=== PATIENT | female | born 1935 | race Two or more races ===

== ENCOUNTER 2017-07-19 08:40 | Emergency (ER) | payer OTHER ==
[~2017-07-19] VITALS: Ht 165.1 cm; Wt 61.2 kg
[~2017-07-19 08:40] MED LIST: AML5T PO; ASPI81TA27 PO; ATOR20TA50 PO; FOLI1TAB6 PO; METO25TA62 PO
[2017-07-19 09:22] LABS: Hematocrit 37.7 % (36.0-46.0); Hemoglobin 12.5 g/dL (12.2-16.2); Mean Corpuscular Hemoglobin 31.9 pg (28.0-32.0); Mean Corpuscular Hgb Conc. 33.3 g/dL (32.0-36.0); Mean Platelet Volume 7.5 fL (6.9-10.8); Platelet Count (auto) 199 10^3/uL (140-450); Red Cell Distribution Width 18.5 % (11.8-14.3)
[2017-07-19 09:31] LABS: Metamyelocytes % 0; Myelocytes % 0; Promyelocytes % 0; Reactive Lymphocytes 0
[2017-07-19] MEDS ORDERED: SODIUM CHLORIDE 0.9% 1,000 ML IV ONE (09:33)
[2017-07-19 10:01] LABS: Albumin 3.8 g/dL (3.4-5.0); BUN/Creatinine Ratio 16.8; Bilirubin, Total 0.6 mg/dL (0.2-1.0); Total Protein 7.8 g/dL (6.4-8.2)
[2017-07-19 11:04] LABS: Urine Bilirubin Negative (Negative); Urine Blood Negative /uL (Negative); Urine Color Yellow (Yellow); Urine Glucose Normal (Normal); Urine Ketone TRACE (Negative); Urine Mucus FEW (None Seen); Urine Nitrite Negative (Negative); Urine RBC <1 /hpf (0 - 4); Urine Squamous Epithelial Cell FEW /hpf (<5); Urine Urobilinogen Normal (Negative); Urine WBC Clumps PRESENT /hpf (None Seen); Urine pH 5.5 (5.0-8.0)
[2017-07-19 11:37] LABS: Large Platelets FEW; Platelet Estimate Adequate
[2017-07-19 13:10] VITALS: BP 136/90
== END 2017-07-19 13:35 | disposition home or self-care (01) ==
LOC: EDBD 08:40 → ER 08:40
DX: M16.12 Unilateral primary osteoarthritis, left hip (principal); N39.0 Urinary tract infection, site not specified; R42 Dizziness and giddiness
CPT/HCPCS: 36415; 70450; 70486; 71010; 73700; 80053; 80307; 80320; 81001; 83735; 84484; 85007; 85027; 93005; 96360; 96361; 99285; J7030

== ENCOUNTER 2017-08-29 19:31 | Emergency (ER) | payer OTHER ==
[~2017-08-29] VITALS: Ht 165.1 cm; Wt 61.2 kg
[2017-08-29 20:36] LABS: Basophils # (auto) 0 uL; Eosinophils # (auto) 0.2 uL; Eosinophils % (auto) 3.8 % (0.0-7.0); Hematocrit 31.9 % (36.0-46.0); Hemoglobin 10.7 g/dL (12.2-16.2); Lymphocytes # (auto) 1.5 uL; Lymphocytes % (auto) 30.9 % (10.0-50.0); Mean Corpuscular Hemoglobin 32.7 pg (28.0-32.0); Mean Corpuscular Hgb Conc. 33.7 g/dL (32.0-36.0); Mean Corpuscular Volume 97.2 fL (80.0-100.0); Mean Platelet Volume 8.1 fL (6.9-10.8); Monocytes # (auto) 0.6 uL; Monocytes % (auto) 11.7 % (0.0-12.0); Neutrophils # (auto) 2.6 uL; Neutrophils % (auto) 52.6 % (37.0-80.0); Nucleated Red Blood Cells % 0.1 %; Platelet Count (auto) 124 10^3/uL (140-450)
[2017-08-29 21:00] LABS: Albumin 3.1 g/dL (3.4-5.0); Anion Gap 8 (5-15); BUN/Creatinine Ratio 12.7; Blood Urea Nitrogen 15 mg/dL (7-18); Calcium 8.2 mg/dL (8.5-10.1); Carbon Dioxide 23 mmol/L (21-32); Chloride 106 mmol/L (98-107); GFR African American 57 mL/min; GFR Non-African American 47 mL/min; Glucose 94 mg/dL (74-106); Potassium 4.1 mmol/L (3.5-5.1); Sodium 137 mmol/L (136-145)
[2017-08-29 21:09] LABS: Alkaline Phosphatase 63 U/L (45-117); Aspartate Aminotransferase 16 U/L (15-37); Bilirubin, Total 0.3 mg/dL (0.2-1.0); Total Protein 6.4 g/dL (6.4-8.2)
[2017-08-30 00:07] VITALS: BP 96/48
[2017-08-30] MEDS ORDERED: THIAMINE HCL 100 MG/ML 2ML VIAL IV ONE (01:00)
== END 2017-08-30 01:20 | disposition home or self-care (01) ==
LOC: EDBD 19:31 → ER 19:35
DX: S70.01XA Contusion of right hip, initial encounter (principal); G92 Toxic encephalopathy; F10.120 Alcohol abuse with intoxication, uncomplicated; I10 Essential (primary) hypertension; Z90.49 Acquired absence of other specified parts of digestive tract; Z90.89 Acquired absence of other organs; W19.XXXA Unspecified fall, initial encounter; Y93.89 Activity, other specified; Y99.8 Other external cause status; Y92.89 Other specified places as the place of occurrence of the external cause
CPT/HCPCS: 36415; 71010; 73502; 80053; 80320; 84484; 85025; 93005; 96374; 99285; J3411

== ENCOUNTER 2017-09-23 10:01 | Emergency (ER) | payer OTHER ==
[~2017-09-23] VITALS: Ht 162.6 cm; Wt 79.8 kg
[2017-09-23 11:04] LABS: Basophils # (auto) 0.1 uL; Basophils % (auto) 1.1 % (0.0-2.0); Eosinophils # (auto) 0.3 uL; Eosinophils % (auto) 6.3 % (0.0-7.0); Hematocrit 35.7 % (36.0-46.0); Hemoglobin 11.8 g/dL (12.2-16.2); Lymphocytes # (auto) 1.5 uL; Lymphocytes % (auto) 29.2 % (10.0-50.0); Mean Corpuscular Hemoglobin 32.3 pg (28.0-32.0); Mean Corpuscular Volume 97.9 fL (80.0-100.0); Mean Platelet Volume 7.6 fL (6.9-10.8); Monocytes # (auto) 0.4 uL; Monocytes % (auto) 7.2 % (0.0-12.0); Neutrophils # (auto) 2.9 uL; Neutrophils % (auto) 56.2 % (37.0-80.0); Platelet Count (auto) 163 10^3/uL (140-450); White Blood Cell 5.2 10^3/uL (4.4-10.8)
[2017-09-23 11:37] LABS: Albumin 3.4 g/dL (3.4-5.0); BUN/Creatinine Ratio 26.3; Bilirubin, Total 0.2 mg/dL (0.2-1.0); Calcium 8.3 mg/dL (8.5-10.1); Potassium 4.4 mmol/L (3.5-5.1); Total Protein 7.1 g/dL (6.4-8.2)
[2017-09-23] MEDS ORDERED: SODIUM CHLORIDE 0.9% 1,000 ML IV ONE (12:41)
[2017-09-23 13:00] LABS: Urine Bilirubin Negative (Negative); Urine Blood Negative /uL (Negative); Urine Color Yellow (Yellow); Urine Glucose Normal (Normal); Urine Ketone Negative (Negative); Urine Mucus FEW (None Seen); Urine Nitrite Negative (Negative); Urine RBC <1 /hpf (0 - 4); Urine Squamous Epithelial Cell FEW /hpf (<5); Urine Urobilinogen Normal (Negative)
[2017-09-23 13:14] VITALS: BP 87/39
== END 2017-09-23 14:28 | disposition home or self-care (01) ==
LOC: ER 10:01 → EDUNIT# 10:01 → EDBD 10:01 → ER 14:28
DX: S52.501A Unspecified fracture of the lower end of right radius, initial encounter for closed fracture (principal); F10.10 Alcohol abuse, uncomplicated; I10 Essential (primary) hypertension; Z90.49 Acquired absence of other specified parts of digestive tract; W18.39XA Other fall on same level, initial encounter; Y93.89 Activity, other specified; Y99.8 Other external cause status; Y92.009 Unspecified place in unspecified non-institutional (private) residence as the place of occurrence of the external cause
CPT/HCPCS: 29125; 36415; 73110; 73200; 73502; 80053; 80320; 81001; 83735; 84484; 85025; 93005; 96360; 99285; J7030

== ENCOUNTER 2018-03-03 21:12 | Emergency (ER) | payer OTHER ==
[~2018-03-03] VITALS: Ht 167.6 cm; Wt 81.6 kg
[2018-03-03 22:06] LABS: Basophils # (auto) 0.1 uL; Basophils % (auto) 1.4 % (0.0-2.0); Eosinophils # (auto) 0.3 uL; Eosinophils % (auto) 6.2 % (0.0-7.0); Hematocrit 32.9 % (36.0-46.0); Lymphocytes # (auto) 1.8 uL; Lymphocytes % (auto) 36.7 % (10.0-50.0); Mean Corpuscular Hemoglobin 32.5 pg (28.0-32.0); Mean Corpuscular Hgb Conc. 33.4 g/dL (32.0-36.0); Mean Corpuscular Volume 97.3 fL (80.0-100.0); Monocytes # (auto) 0.6 uL; Monocytes % (auto) 12.2 % (0.0-12.0); Neutrophils # (auto) 2.1 uL; Neutrophils % (auto) 43.5 % (37.0-80.0); Nucleated Red Blood Cells % 0.1 %; Platelet Count (auto) 141 10^3/uL (140-450); Red Blood Cells 3.38 10^6/uL (4.0-5.20); Red Cell Distribution Width 16.6 % (11.8-14.3); White Blood Cell 4.8 10^3/uL (4.4-10.8)
[2018-03-03 22:24] LABS: INR 1.02 (0.9-1.15); Partial Thromboplastin Time 27.9 sec (23.78-33.04); Prothrombin Time 10.9 sec (9.27-12.13)
[2018-03-03 22:26] LABS: Carbon Dioxide 22 mmol/L (21-32); Chloride 105 mmol/L (98-107); Potassium 4.1 mmol/L (3.5-5.1); Sodium 138 mmol/L (136-145)
[2018-03-03 22:27] LABS: Acetaminophen < 2.0 ug/mL (10-30); Alanine Aminotransferase 18 U/L (13-56); Albumin 3.3 g/dL (3.4-5.0); Anion Gap 11 (5-15); Aspartate Aminotransferase 15 U/L (15-37); BUN/Creatinine Ratio 20.3; Blood Urea Nitrogen 29 mg/dL (7-18); Calcium 8.5 mg/dL (8.5-10.1); GFR African American 45 mL/min; GFR Non-African American 37 mL/min; Glucose 86 mg/dL (74-106); Salicylate < 1.7 mg/dL (2.8-20.0)
[2018-03-03 22:32] LABS: Alkaline Phosphatase 64 U/L (45-117); Bilirubin, Total 0.4 mg/dL (0.2-1.0); Total Protein 6.9 g/dL (6.4-8.2)
[2018-03-03 23:23] LABS: Urine Bacteria MANY /hpf (None Seen); Urine Blood Negative /uL (Negative); Urine Specific Gravity 1.016 (1.001-1.035); Urine WBC 30 /hpf (0 - 5)
[2018-03-04 01:00] VITALS: BP 134/57
== END 2018-03-04 01:23 | disposition home or self-care (01) ==
LOC: ER 21:12 → EDBD 21:12 → EDUNIT# 21:12 → ER 03-04 01:18
DX: F10.129 Alcohol abuse with intoxication, unspecified (principal); G92 Toxic encephalopathy; N39.0 Urinary tract infection, site not specified; R31.9 Hematuria, unspecified; I10 Essential (primary) hypertension; Z79.82 Long term (current) use of aspirin; Z90.49 Acquired absence of other specified parts of digestive tract
CPT/HCPCS: 36415; 80053; 80320; 80329; 81001; 84484; 85025; 85610; 85730

== ENCOUNTER 2018-05-09 00:29 | Observation (INO) | payer OTHER ==
[~2018-05-09] VITALS: Ht 165.1 cm; Wt 61.2 kg
[2018-05-09 01:07] LABS: Basophils # (auto) 0.1 uL; Basophils % (auto) 1.2 % (0.0-2.0); Eosinophils # (auto) 0.3 uL; Eosinophils % (auto) 7.2 % (0.0-7.0); Hematocrit 32.7 % (36.0-46.0); Hemoglobin 11.2 g/dL (12.2-16.2); Lymphocytes # (auto) 1.6 uL; Lymphocytes % (auto) 34.1 % (10.0-50.0); Mean Corpuscular Hemoglobin 33.9 pg (28.0-32.0); Mean Corpuscular Hgb Conc. 34.4 g/dL (32.0-36.0); Mean Corpuscular Volume 98.5 fL (80.0-100.0); Monocytes # (auto) 0.5 uL; Neutrophils # (auto) 2.2 uL; Neutrophils % (auto) 47.5 % (37.0-80.0); Platelet Count (auto) 155 10^3/uL (140-450); Red Blood Cells 3.32 10^6/uL (4.0-5.20); Red Cell Distribution Width 17.6 % (11.8-14.3); White Blood Cell 4.7 10^3/uL (4.4-10.8)
[2018-05-09 01:25] LABS: Albumin 3.1 g/dL (3.4-5.0); Calcium 8.2 mg/dL (8.5-10.1); Potassium 3.9 mmol/L (3.5-5.1)
[2018-05-09 01:27] LABS: BUN/Creatinine Ratio 15.2
[2018-05-09 01:28] LABS: Acetaminophen < 2.0 ug/mL (10-30); Salicylate < 1.7 mg/dL (2.8-20.0)
[2018-05-09 01:29] LABS: Bilirubin, Total 0.3 mg/dL (0.2-1.0); Total Protein 6.4 g/dL (6.4-8.2)
[2018-05-09] MEDS ORDERED: THIAMINE INJ 100 MG, MULTIPLE VITAMIN 10 ML, FOLIC ACID 1 MG, MAGNESIUM SULF SDV 50% 8 ... IV STA ×5 (02:49)
[2018-05-09 06:11] VITALS: BP 113/67
[2018-05-09] MEDS ORDERED: THIAMINE INJ 100 MG, MULTIPLE VITAMIN 10 ML, FOLIC ACID 1 MG, MAGNESIUM SULF SDV 50% 8 ... IV SCH ×5 (12:00)
== END 2018-05-09 07:02 | disposition home or self-care (01) | DRG 92 ==
LOC: ER 00:29 → EDBD 00:29 → OVERFLOW 00:30 → ER 07:02
PROVIDERS: ADMIT Emergency Medicine; ATTEND Emergency Medicine
DX: G92 Toxic encephalopathy (principal); F33.0 Major depressive disorder, recurrent, mild; I10 Essential (primary) hypertension; F10.129 Alcohol abuse with intoxication, unspecified; Z90.49 Acquired absence of other specified parts of digestive tract; Z79.82 Long term (current) use of aspirin
CPT/HCPCS: 36415; 80053; 80320; 80329; 85025; 99285; G0378; J7030

== ENCOUNTER 2018-10-12 12:17 | Emergency (ER) | payer OTHER ==
[~2018-10-12] VITALS: Ht 165.1 cm; Wt 65.8 kg
[2018-10-12] MEDS ORDERED: SODIUM CHLORIDE 0.9% 1,000 ML IV ONE ×4 (12:19→18:03)
[2018-10-12] MEDS ORDERED: THIAMINE 100mg/ml INJ (200mg/2ml VIAL) IV ONE (12:30)
[2018-10-12 13:03] LABS: Basophils # (auto) 0 uL; Basophils % (auto) 0.4 % (0.0-2.0); Eosinophils # (auto) 0.5 uL; Hematocrit 36.8 % (36.0-46.0); Hemoglobin 12.3 g/dL (12.2-16.2); Lymphocytes # (auto) 1.2 uL; Lymphocytes % (auto) 27.5 % (10.0-50.0); Mean Corpuscular Hgb Conc. 33.4 g/dL (32.0-36.0); Mean Corpuscular Volume 92.8 fL (80.0-100.0); Monocytes # (auto) 0.4 uL; Monocytes % (auto) 8.4 % (0.0-12.0); Neutrophils # (auto) 2.4 uL; Neutrophils % (auto) 52.7 % (37.0-80.0); Nucleated Red Blood Cells % 0.1 %; Platelet Count (auto) 200 10^3/uL (140-450); Red Blood Cells 3.96 10^6/uL (4.0-5.20); Red Cell Distribution Width 17.1 % (11.8-14.3); White Blood Cell 4.5 10^3/uL (4.4-10.8)
[2018-10-12 13:17] LABS: Acetaminophen < 2.0 ug/mL (10-30); Albumin 3.4 g/dL (3.4-5.0); Calcium 8.7 mg/dL (8.5-10.1); Potassium 4.5 mmol/L (3.5-5.1); Salicylate < 1.7 mg/dL (2.8-20.0)
[2018-10-12 13:19] LABS: BUN/Creatinine Ratio 13.3; Bilirubin, Total 0.3 mg/dL (0.2-1.0)
[2018-10-12] MEDS ORDERED: LORazepam 0.5 MG TAB PO ONE (14:30)
[2018-10-12] MEDS ORDERED: HALOPERIDOL LACTATE 5 MG/ML INJ VIAL IM ONE (14:30)
[2018-10-12] MEDS ORDERED: LORazepam 2MG/ML-1ML VIAL IM ONE (14:30)
[2018-10-12] MEDS ORDERED: THIAMINE HCL 100 MG TAB PO ONE (16:30)
[2018-10-12 16:31] LABS: Amphetamine Screen, Urine NEGATIVE (NEGATIVE); Barbiturate Scree,Urine NEGATIVE (NEGATIVE); Benzodiazephine Screen, Urine NEGATIVE (NEGATIVE); Cannabinoid Screen, Urine NEGATIVE (NEGATIVE); Cocaine Screen, Urine NEGATIVE (NEGATIVE); Opiate Scree,Urine NEGATIVE (NEGATIVE); Phencyclidine Screen, Urine NEGATIVE (NEGATIVE)
[2018-10-12 16:49] LABS: Urine Bacteria NONE SEEN /hpf (None Seen); Urine Blood Negative /uL (Negative); Urine Specific Gravity 1.009 (1.001-1.035); Urine WBC 1 /hpf (0 - 5)
[2018-10-13 20:00] VITALS: BP 128/86
== END 2018-10-13 20:35 | disposition short-term general hospital (02) ==
LOC: EDBD 12:17 → ER 12:32
DX: R45.851 Suicidal ideations (principal); F10.920 Alcohol use, unspecified with intoxication, uncomplicated; I10 Essential (primary) hypertension; Y90.0 Blood alcohol level of less than 20 mg/100 ml; Z90.49 Acquired absence of other specified parts of digestive tract; Z90.89 Acquired absence of other organs
CPT/HCPCS: 36415; 51702; 71045; 80053; 80307; 80320; 80329; 81001; 85025; 96372; 99285; J1630; J2060; J7030

== ENCOUNTER 2019-01-04 02:54 | Emergency (ER) | payer OTHER ==
[~2019-01-04] VITALS: Ht 165.1 cm; Wt 63.5 kg
[2019-01-04 08:13] LABS: Basophils # (auto) 0.1 uL; Eosinophils # (auto) 0.1 uL; Eosinophils % (auto) 1.5 % (0.0-7.0); Hematocrit 35.5 % (36.0-46.0); Hemoglobin 11.7 g/dL (12.2-16.2); Lymphocytes # (auto) 0.8 uL; Lymphocytes % (auto) 14.3 % (10.0-50.0); Mean Corpuscular Hemoglobin 30.8 pg (28.0-32.0); Mean Corpuscular Volume 93.5 fL (80.0-100.0); Monocytes # (auto) 0.5 uL; Monocytes % (auto) 8.3 % (0.0-12.0); Neutrophils # (auto) 4.4 uL; Neutrophils % (auto) 74.9 % (37.0-80.0); Nucleated Red Blood Cells % 0.1 %; Platelet Count (auto) 221 10^3/uL (140-450); Red Cell Distribution Width 17.5 % (11.8-14.3); White Blood Cell 5.9 10^3/uL (4.4-10.8)
[2019-01-04 08:31] LABS: Albumin 3.3 g/dL (3.4-5.0)
[2019-01-04 08:43] LABS: Bilirubin, Total 0.3 mg/dL (0.2-1.0); Total Protein 6.7 g/dL (6.4-8.2)
[2019-01-04 09:20] VITALS: BP 115/95
== END 2019-01-04 09:31 | disposition home or self-care (01) ==
LOC: EDBD 02:54 → ER 03:00
DX: S76.011A Strain of muscle, fascia and tendon of right hip, initial encounter (principal); I10 Essential (primary) hypertension; Z79.82 Long term (current) use of aspirin; Z79.899 Other long term (current) drug therapy; W18.39XA Other fall on same level, initial encounter; Y93.89 Activity, other specified; Y99.8 Other external cause status; Y92.098 Other place in other non-institutional residence as the place of occurrence of the external cause
CPT/HCPCS: 36415; 70450; 71250; 72192; 80053; 83735; 84484; 85025; 93005

== ENCOUNTER 2019-07-17 12:43 | Emergency (ER) | payer OTHER ==
[~2019-07-17] VITALS: Ht 160 cm; Wt 63.5 kg
[~2019-07-17 12:43] MED LIST changes: +ASPI-404 PO; -ASPI81TA27 PO
[2019-07-17 14:08] LABS: Basophils # (auto) 0.1 uL; Basophils % (auto) 1.6 % (0.0-2.0); Eosinophils # (auto) 0.2 uL; Eosinophils % (auto) 4.7 % (0.0-7.0); Hemoglobin 11.7 g/dL (12.2-16.2); Lymphocytes # (auto) 1.1 uL; Lymphocytes % (auto) 24.8 % (10.0-50.0); Mean Corpuscular Hemoglobin 31.7 pg (28.0-32.0); Mean Corpuscular Hgb Conc. 33.4 g/dL (32.0-36.0); Mean Corpuscular Volume 94.9 fL (80.0-100.0); Monocytes # (auto) 0.3 uL; Monocytes % (auto) 5.9 % (0.0-12.0); Neutrophils # (auto) 2.9 uL; Nucleated Red Blood Cells % 0.1 %; Platelet Count (auto) 251 10^3/uL (140-450); Red Blood Cells 3.69 10^6/uL (4.0-5.20); Red Cell Distribution Width 16.3 % (11.8-14.3); White Blood Cell 4.6 10^3/uL (4.4-10.8)
[2019-07-17 14:38] LABS: INR 0.96 (0.9-1.15); Partial Thromboplastin Time 25.4 sec (23.64-32.05)
[2019-07-17 14:54] LABS: Alanine Aminotransferase 17 U/L (13-56); Albumin 2.3 g/dL (3.4-5.0); Anion Gap 10 (5-15); Aspartate Aminotransferase 25 U/L (15-37); Blood Urea Nitrogen 31 mg/dL (7-18); Carbon Dioxide 23 mmol/L (21-32); Chloride 110 mmol/L (98-107); Magnesium 2.2 mg/dL (1.6-2.6); Potassium 4.5 mmol/L (3.5-5.1); Sodium 143 mmol/L (136-145)
[2019-07-17 14:59] LABS: Alkaline Phosphatase 63 U/L (45-117); BUN/Creatinine Ratio 23.3; Bilirubin, Total 0.2 mg/dL (0.2-1.0); Calcium 8.4 mg/dL (8.5-10.1); GFR African American 49 mL/min; GFR Non-African American 41 mL/min; Glucose 79 mg/dL (74-106); Total Protein 6.7 g/dL (6.4-8.2)
[2019-07-17] MEDS ORDERED: FOLIC ACID 1 MG, MULTIPLE VITAMIN 10 ML, MAGNESIUM SULF SDV 50% 8 MEQ, THIAMINE INJ 100... INJ STA ×5 (16:11)
[2019-07-17] MEDS ORDERED: THIAMINE HCL 100 MG TAB PO ONE (16:30)
[2019-07-17 23:00] VITALS: BP 158/71
== END 2019-07-17 22:56 | disposition home or self-care (01) ==
LOC: EDBD 12:43 → ER 12:43
DX: S62.614A Displaced fracture of proximal phalanx of right ring finger, initial encounter for closed fracture (principal); S62.616A Displaced fracture of proximal phalanx of right little finger, initial encounter for closed fracture; D64.9 Anemia, unspecified; F10.20 Alcohol dependence, uncomplicated; I48.91 Unspecified atrial fibrillation; J44.9 Chronic obstructive pulmonary disease, unspecified; I10 Essential (primary) hypertension; Z79.82 Long term (current) use of aspirin; Z79.899 Other long term (current) drug therapy; W18.39XA Other fall on same level, initial encounter; Y93.89 Activity, other specified; Y99.8 Other external cause status; Y92.89 Other specified places as the place of occurrence of the external cause
CPT/HCPCS: 29125; 36415; 70450; 71045; 73130; 80053; 80320; 83735; 84484; 85025; 85610; 85730; 93005; 94761; 99284; J3411; J3475; J7030

== ENCOUNTER → 2020-09-04 | Emergency (ER) | payer OTHER ==
[~2020-09-04] VITALS: Ht 182.9 cm; Wt 74.8 kg
[~2020-09-04] MED LIST changes: -ASPI-404 PO; +ASPI-543 PO; -METO25TA62 PO; +METO25TA93 PO
[2020-09-04 10:14] LABS: Basophils # (auto) 0 10 ^3/uL (0-0.2); Basophils % (auto) 0.6 % (0.0-2.0); Eosinophils # (auto) 0.2 10 ^3/uL (0-0.8); Eosinophils % (auto) 2.8 % (0.0-7.0); Hematocrit 34.6 % (36.0-46.0); Hemoglobin 11.5 g/dL (12.2-16.2); Lymphocytes % (auto) 15.3 % (10.0-50.0); Mean Corpuscular Hemoglobin 29.2 pg (28.0-32.0); Mean Corpuscular Hgb Conc. 33.3 g/dL (32.0-36.0); Mean Corpuscular Volume 87.8 fL (80.0-100.0); Monocytes # (auto) 0.6 10 ^3/uL (0-1.3); Monocytes % (auto) 8.4 % (0.0-12.0); Neutrophils # (auto) 4.8 10 ^3/uL (1.6-8.6); Neutrophils % (auto) 72.9 % (37.0-80.0); Platelet Count (auto) 250 10^3/uL (140-450); Red Blood Cells 3.94 10^6/uL (4.0-5.20); Red Cell Distribution Width 16.6 % (11.8-14.3); White Blood Cell 6.6 10^3/uL (4.4-10.8)
[2020-09-04 10:23] LABS: Alanine Aminotransferase 12 U/L (13-56); Albumin 2.9 g/dL (3.4-5.0); Anion Gap 10 (5-15); Blood Urea Nitrogen 18 mg/dL (7-18); Calcium 8.9 mg/dL (8.5-10.1); Carbon Dioxide 23 mmol/L (21-32); Chloride 102 mmol/L (98-107); Glucose 86 mg/dL (74-106); Potassium 3.8 mmol/L (3.5-5.1); Sodium 135 mmol/L (136-145)
[2020-09-04 10:26] LABS: INR 1.02 (0.9-1.15)
[2020-09-04 10:27] LABS: Partial Thromboplastin Time < 20.0 sec (23.0-31.2)
[2020-09-04 10:28] LABS: Alkaline Phosphatase 80 U/L (45-117); Aspartate Aminotransferase 15 U/L (15-37); BUN/Creatinine Ratio 12.9; Bilirubin, Total 0.7 mg/dL (0.2-1.0); GFR African American 47 mL/min; GFR Non-African American 38 mL/min; Total Protein 6.8 g/dL (6.4-8.2)
[2020-09-04 15:46] VITALS: BP 160/84
== END | disposition home or self-care (01) ==
LOC: EDUNIT# 01:42 → EDBD 02:05 → ER 02:05
DX: S76.012A Strain of muscle, fascia and tendon of left hip, initial encounter (principal); M16.11 Unilateral primary osteoarthritis, right hip; I48.91 Unspecified atrial fibrillation; J44.9 Chronic obstructive pulmonary disease, unspecified; I10 Essential (primary) hypertension; F10.20 Alcohol dependence, uncomplicated; Y90.9 Presence of alcohol in blood, level not specified; Z79.899 Other long term (current) drug therapy; W18.39XA Other fall on same level, initial encounter; Y93.89 Activity, other specified; Y92.009 Unspecified place in unspecified non-institutional (private) residence as the place of occurrence of the external cause; Y99.8 Other external cause status
CPT/HCPCS: 36415; 70450; 71045; 72192; 80053; 84484; 85025; 85610; 85730

== ENCOUNTER 2020-11-01 15:55 | Emergency (ER) | payer OTHER ==
[~2020-11-01] VITALS: Ht 165.1 cm; Wt 61.2 kg
[2020-11-01] MEDS ORDERED: THIAMINE 100mg/ml INJ (200mg/2ml VIAL) IV ONE (16:15)
[2020-11-01] MEDS ORDERED: SODIUM CHLORIDE 0.9% 1,000 ML IV ONE ×2 (16:15)
[2020-11-01 17:10] LABS: Basophils # (auto) 0 10 ^3/uL (0-0.2); Basophils % (auto) 0.4 % (0.0-2.0); Eosinophils # (auto) 0.1 10 ^3/uL (0-0.8); Eosinophils % (auto) 0.9 % (0.0-7.0); Hematocrit 34.2 % (36.0-46.0); Hemoglobin 11.4 g/dL (12.2-16.2); Lymphocytes # (auto) 0.6 10 ^3/uL (0.4-5.4); Lymphocytes % (auto) 6.2 % (10.0-50.0); Mean Corpuscular Hemoglobin 29.9 pg (28.0-32.0); Mean Corpuscular Hgb Conc. 33.4 g/dL (32.0-36.0); Mean Corpuscular Volume 89.6 fL (80.0-100.0); Monocytes # (auto) 0.4 10 ^3/uL (0-1.3); Monocytes % (auto) 3.6 % (0.0-12.0); Neutrophils # (auto) 9.1 10 ^3/uL (1.6-8.6); Neutrophils % (auto) 88.9 % (37.0-80.0); Platelet Count (auto) 297 10^3/uL (140-450); Red Blood Cells 3.82 10^6/uL (4.0-5.20); Red Cell Distribution Width 16.9 % (11.8-14.3); White Blood Cell 10.2 10^3/uL (4.4-10.8)
[2020-11-01 17:24] LABS: Urine Bacteria NONE SEEN /hpf (None Seen); Urine Blood Negative /uL (Negative); Urine Specific Gravity 1.011 (1.001-1.035); Urine WBC <1 /hpf (0 - 5)
[2020-11-01 17:28] LABS: Albumin 3.2 g/dL (3.4-5.0); Anion Gap 5 (5-15); Blood Urea Nitrogen 19 mg/dL (7-18); Calcium 8.7 mg/dL (8.5-10.1); Carbon Dioxide 26 mmol/L (21-32); Chloride 112 mmol/L (98-107); Glucose 85 mg/dL (74-106); Potassium 3.8 mmol/L (3.5-5.1); Sodium 143 mmol/L (136-145)
[2020-11-01 17:29] LABS: INR 1.03 (0.9-1.15); Partial Thromboplastin Time 24.6 sec (23.0-31.2)
[2020-11-01 17:34] LABS: Alanine Aminotransferase 17 U/L (13-56); Alkaline Phosphatase 68 U/L (45-117); Aspartate Aminotransferase 19 U/L (15-37); Bilirubin, Total 0.2 mg/dL (0.2-1.0); GFR African American 52 mL/min; GFR Non-African American 43 mL/min
[2020-11-01] MEDS ORDERED: ACETAMINOPHEN 500 MG TAB PO ONE (20:15)
[2020-11-01] MEDS ORDERED: KETOROLAC TROMETH 30 MG/ML 1ML VIAL IV ONE (20:15)
[2020-11-02 00:18] VITALS: BP 147/73
== END 2020-11-02 01:52 | disposition home or self-care (01) ==
LOC: ER 15:55 → EDBD 15:55 → ER 11-02 01:52
DX: S52.201A Unspecified fracture of shaft of right ulna, initial encounter for closed fracture (principal); F10.129 Alcohol abuse with intoxication, unspecified; J44.9 Chronic obstructive pulmonary disease, unspecified; I10 Essential (primary) hypertension; W18.39XA Other fall on same level, initial encounter; Y93.89 Activity, other specified; Y92.89 Other specified places as the place of occurrence of the external cause; Y99.8 Other external cause status; Y90.8 Blood alcohol level of 240 mg/100 ml or more
CPT/HCPCS: 36415; 70450; 71045; 71101; 73080; 73090; 80053; 80320; 81001; 84484; 85025; 85610; 85730; 93005; 96361; 96374; 96375; 99285; J1885; J3411; J7030

== ENCOUNTER 2021-08-10 16:50 | Inpatient (IN) | payer OTHER ==
[2021-08-10] VITALS (11 sets, daily range): BP systolic 158–179; BP diastolic 85–91
[2021-08-10] MEDS ORDERED: DOPamine 1600MCG/ML D5W 250 ML IV ONE (17:12)
[2021-08-10] MEDS ORDERED: ASPirin 81 mg TAB PO ONE (17:15)
[2021-08-10] MEDS ORDERED: SODIUM CHLORIDE 0.9% 1,000 ML IV ONE ×2 (17:15→21:00)
[2021-08-10] MEDS ORDERED: ONDANSETRON HCL 4 MG/2 ML VIAL ONE (17:35)
[2021-08-10] MEDS ORDERED: MORPHINE SULFATE INJECTION 2 MG/ML SYRG ONE (17:36)
[2021-08-10] MEDS: DOPamine 1600MCG/ML D5W 250 ML IV SCH (17:44)
[2021-08-10] MEDS ORDERED: ONDANSETRON HCL 4 MG/2 ML VIAL IV ONE (17:45)
[2021-08-10] MEDS ORDERED: MORPHINE SULFATE INJECTION 2 MG/ML SYRG IV ONE (17:45)
[2021-08-10 17:50] LABS: Basophils # (auto) 0.1 10 ^3/uL (0-0.2); Basophils % (auto) 0.7 % (0.0-2.0); Eosinophils # (auto) 0.1 10 ^3/uL (0-0.8); Hemoglobin 12.1 g/dL (12.2-16.2); Lymphocytes # (auto) 0.8 10 ^3/uL (0.4-5.4); Lymphocytes % (auto) 8.1 % (10.0-50.0); Mean Corpuscular Hemoglobin 30.9 pg (28.0-32.0); Mean Corpuscular Hgb Conc. 32.7 g/dL (32.0-36.0); Mean Corpuscular Volume 94.3 fL (80.0-100.0); Monocytes # (auto) 0.8 10 ^3/uL (0-1.3); Monocytes % (auto) 7.9 % (0.0-12.0); Neutrophils # (auto) 8.5 10 ^3/uL (1.6-8.6); Neutrophils % (auto) 82.3 % (37.0-80.0); Nucleated Red Blood Cells % 0.3 %; Red Blood Cells 3.92 10^6/uL (4.0-5.20); Red Cell Distribution Width 17.3 % (11.8-14.3); White Blood Cell 10.3 10^3/uL (4.4-10.8)
[2021-08-10 18:04] LABS: Albumin 2.8 g/dL (3.4-5.0); Calcium 9.1 mg/dL (8.5-10.1); Magnesium 3.2 mg/dL (1.6-2.6); Potassium 4.4 mmol/L (3.5-5.1)
[2021-08-10 18:12] LABS: Bilirubin, Total 0.9 mg/dL (0.2-1.0); Total Protein 6.7 g/dL (6.4-8.2)
[2021-08-10 18:21] LABS: INR 1.77 (0.9-1.15)
[2021-08-10] MEDS ORDERED: LIDOCAINE 2%HCL (LOCAL ANESTH.) INJ 20ML MDV ONE (19:10)
[2021-08-10] MEDS ORDERED: IODIXANOL 320MG/ML 100ML BTL IV ONE (19:10)
[2021-08-10] MEDS ORDERED: ANGIOMAX 250 MG VIAL IV ONE (19:24)
[2021-08-10] MEDS ORDERED: MIDAZOLAM HCL 2MG/2ML 2ml VIAL (1mg/ml) ONE (19:25)
[2021-08-10] MEDS ORDERED: fentaNYL CITRATE 100 MCG/2 ML VL ONE (19:25)
[2021-08-10] MEDS ORDERED: SODIUM CHL 0.9% 0 ML ONE (19:25)
[2021-08-10] MEDS ORDERED: HEPARIN SODIUM (PORCINE) 5000 UNITS/ML 1ML VIAL ONE (19:26)
[2021-08-10] MEDS ORDERED: VERAPAMIL 2.5MG/ML INJ 2ML VIAL IV ONE (19:26)
[2021-08-10] MEDS ORDERED: phytonadione 10 MG in SODIUM CHL 0.9% 50 ML IV ONE (21:00)
[2021-08-10] MEDS ORDERED: NITROGLYCERIN 0.4 MG SL TAB SL PRN (21:30)
[2021-08-10] MEDS ORDERED: HYDROcodone-ACET 5/325MG TAB PO PRN (21:30)
[2021-08-10] MEDS ORDERED: hydrALAZINE HCL 20 MG/ML VL IV PRN (21:30)
[2021-08-10] MEDS ORDERED: ACETAMINOPHEN 325 MG TAB PO PRN (21:30)
[2021-08-10] MEDS ORDERED: MORPHINE SULFATE INJECTION 2 MG/ML SYRG IV PRN (21:30)
[2021-08-10] MEDS ORDERED: ONDANSETRON HCL 4 MG/2 ML VIAL IV PRN (21:30)
[2021-08-10] MEDS ORDERED: DOCUSATE SOD 100 MG CAP PO PRN (21:30)
[2021-08-10] MEDS: ALBUTEROL SULF HFA 90MCG INH 200DOSE IN SCH (22:00)
[2021-08-10] MEDS: ASCORBIC ACID 500 MG TAB PO SCH (22:00)
[2021-08-10] MEDS: SODIUM CHLOR 0.9% PF (SALINE LOCK) 10ML VIAL/SYR IV SCH (22:00)
[2021-08-10] MEDS ORDERED: phytonadione 1 ML ONE (23:06)
[2021-08-11] VITALS (50 sets, daily range): BP systolic 103–187; BP diastolic 59–92
[2021-08-11 03:56] LABS: Basophils # (auto) 0 10 ^3/uL (0-0.2); Basophils % (auto) 0.5 % (0.0-2.0); Eosinophils # (auto) 0.3 10 ^3/uL (0-0.8); Eosinophils % (auto) 2.9 % (0.0-7.0); Hemoglobin 11.6 g/dL (12.2-16.2); Lymphocytes # (auto) 0.9 10 ^3/uL (0.4-5.4); Lymphocytes % (auto) 9.8 % (10.0-50.0); Mean Corpuscular Hemoglobin 30.6 pg (28.0-32.0); Mean Corpuscular Hgb Conc. 32.1 g/dL (32.0-36.0); Mean Corpuscular Volume 95.2 fL (80.0-100.0); Monocytes # (auto) 0.8 10 ^3/uL (0-1.3); Monocytes % (auto) 8.5 % (0.0-12.0); Neutrophils % (auto) 78.3 % (37.0-80.0); Nucleated Red Blood Cells % 0.3 %; Red Blood Cells 3.78 10^6/uL (4.0-5.20); Red Cell Distribution Width 17.6 % (11.8-14.3); White Blood Cell 8.9 10^3/uL (4.4-10.8)
[2021-08-11 05:02] LABS: Potassium 4.3 mmol/L (3.5-5.1)
[2021-08-11 05:04] LABS: BUN/Creatinine Ratio 26.9; Bilirubin, Total 0.6 mg/dL (0.2-1.0); Calcium 9.4 mg/dL (8.5-10.1)
[2021-08-11 05:05] LABS: Albumin 2.7 g/dL (3.4-5.0); Total Protein 6.5 g/dL (6.4-8.2)
[2021-08-11] MEDS: SODIUM CHLOR 0.9% PF (SALINE LOCK) 10ML VIAL/SYR IV SCH ×3 (05:20→22:00)
[2021-08-11] MEDS: ALBUTEROL SULF HFA 90MCG INH 200DOSE IN SCH (06:00)
[2021-08-11] MEDS: FAMOTIDINE (10MG/ML) 2ML VL IV SCH (09:33)
[2021-08-11] MEDS: ZINC SULFATE 220mg CAP or TAB PO SCH (09:34)
[2021-08-11] MEDS: FUROSEMIDE 20 MG/2 ML VIAL IV SCH (09:34)
[2021-08-11] MEDS: ASCORBIC ACID 500 MG TAB PO SCH ×2 (09:34→22:00)
[2021-08-11] MEDS: ASPirin 81 mg TAB PO SCH (09:34)
[2021-08-11] MEDS: MULTIPLE VITAMIN TAB PO SCH (09:34)
[2021-08-11] MEDS: DOPamine 1600MCG/ML D5W 250 ML IV SCH (11:16)
[2021-08-11 13:48] LABS: Basophils # (auto) 0 10 ^3/uL (0-0.2); Basophils % (auto) 0.5 % (0.0-2.0); Eosinophils # (auto) 0.2 10 ^3/uL (0-0.8); Hematocrit 37.2 % (36.0-46.0); Hemoglobin 12.3 g/dL (12.2-16.2); Lymphocytes # (auto) 0.4 10 ^3/uL (0.4-5.4); Lymphocytes % (auto) 4.3 % (10.0-50.0); Mean Corpuscular Hemoglobin 30.7 pg (28.0-32.0); Mean Corpuscular Hgb Conc. 33.1 g/dL (32.0-36.0); Mean Corpuscular Volume 92.8 fL (80.0-100.0); Monocytes # (auto) 0.6 10 ^3/uL (0-1.3); Monocytes % (auto) 6.2 % (0.0-12.0); Neutrophils # (auto) 8.1 10 ^3/uL (1.6-8.6); Nucleated Red Blood Cells % 0.1 %; Red Blood Cells 4.01 10^6/uL (4.0-5.20); Red Cell Distribution Width 17.2 % (11.8-14.3); White Blood Cell 9.4 10^3/uL (4.4-10.8)
[2021-08-11 14:06] LABS: INR 1.14 (0.9-1.15); Partial Thromboplastin Time 25.9 sec (23.6-33.0)
[2021-08-11 14:08] LABS: Calcium 9.4 mg/dL (8.5-10.1); Potassium 3.7 mmol/L (3.5-5.1)
[2021-08-11 14:13] LABS: BUN/Creatinine Ratio 27.7
[2021-08-12] VITALS (18 sets, daily range): BP systolic 120–152; BP diastolic 62–80
[2021-08-12 04:13] LABS: Basophils # (auto) 0 10 ^3/uL (0-0.2); Basophils % (auto) 0.4 % (0.0-2.0); Eosinophils # (auto) 0.2 10 ^3/uL (0-0.8); Eosinophils % (auto) 3.6 % (0.0-7.0); Hematocrit 33.7 % (36.0-46.0); Hemoglobin 11.1 g/dL (12.2-16.2); Lymphocytes # (auto) 0.8 10 ^3/uL (0.4-5.4); Lymphocytes % (auto) 11.8 % (10.0-50.0); Mean Corpuscular Hemoglobin 30.6 pg (28.0-32.0); Mean Corpuscular Volume 92.8 fL (80.0-100.0); Monocytes # (auto) 0.7 10 ^3/uL (0-1.3); Monocytes % (auto) 10.5 % (0.0-12.0); Neutrophils % (auto) 73.7 % (37.0-80.0); Nucleated Red Blood Cells % 0.1 %; Red Blood Cells 3.63 10^6/uL (4.0-5.20); Red Cell Distribution Width 17.2 % (11.8-14.3); White Blood Cell 6.8 10^3/uL (4.4-10.8)
[2021-08-12 04:32] LABS: INR 1.1 (0.9-1.15); Partial Thromboplastin Time 28.5 sec (23.6-33.0)
[2021-08-12 04:54] LABS: BUN/Creatinine Ratio 28.7; Calcium 8.9 mg/dL (8.5-10.1); Magnesium 2.7 mg/dL (1.6-2.6)
[2021-08-12] MEDS: SODIUM CHLOR 0.9% PF (SALINE LOCK) 10ML VIAL/SYR IV SCH ×3 (06:12→21:49)
[2021-08-12] MEDS: ZINC SULFATE 220mg CAP or TAB PO SCH (09:45)
[2021-08-12] MEDS: FOLIC ACID 1 MG TAB PO SCH (09:45)
[2021-08-12] MEDS: PRENATAL VITAMIN TAB PO SCH (09:45)
[2021-08-12] MEDS: THIAMINE HCL 100 MG TAB PO SCH (09:45)
[2021-08-12] MEDS: ASCORBIC ACID 500 MG TAB PO SCH ×2 (09:45→22:00)
[2021-08-12] MEDS: FUROSEMIDE 20 MG/2 ML VIAL IV SCH (09:46)
[2021-08-12] MEDS: FAMOTIDINE (10MG/ML) 2ML VL IV SCH (09:46)
[2021-08-12] MEDS: ASPirin 81 mg TAB PO SCH (09:46)
[2021-08-12] MEDS: MULTIPLE VITAMIN TAB PO SCH (09:46)
[2021-08-12] MEDS: DOPamine 1600MCG/ML D5W 250 ML IV SCH (12:25)
[2021-08-12] MEDS ORDERED: VANCOMYCIN HCL 1000 MG VL ONE ×2 (13:23→14:38)
[2021-08-12] MEDS ORDERED: LIDOCAINE 2%HCL (LOCAL ANESTH.) INJ 20ML MDV ONE (13:24)
[2021-08-12] MEDS ORDERED: VANCOMYCIN 1GM/250ML 250 ML IV ONE (13:24)
[2021-08-12] MEDS ORDERED: fentaNYL CITRATE 100 MCG/2 ML VL ONE (13:25)
[2021-08-12] MEDS ORDERED: IOHEXOL 350 MG/ML 100ML IJ ONE (13:25)
[2021-08-12] MEDS ORDERED: MIDAZOLAM HCL 2MG/2ML 2ml VIAL (1mg/ml) ONE (13:25)
[2021-08-12] MEDS ORDERED: FLUMAZENIL 0.1 MG/ML INJ 10ML MDV IV ONE (14:24)
[2021-08-12 15:05] LABS: Urine Bacteria FEW /hpf (None Seen); Urine Blood TRACE /uL (Negative); Urine Specific Gravity 1.019 (1.001-1.035); Urine WBC 13 /hpf (0 - 5)
[2021-08-13 05:08] VITALS: BP 133/97
[2021-08-13] MEDS: SODIUM CHLOR 0.9% PF (SALINE LOCK) 10ML VIAL/SYR IV SCH ×2 (06:04→13:59)
[2021-08-13 07:14] LABS: BUN/Creatinine Ratio 28.9; Calcium 8.5 mg/dL (8.5-10.1)
[2021-08-13 08:46] VITALS: BP 125/64
[2021-08-13] MEDS: ASPirin 81 mg TAB PO SCH (10:00)
[2021-08-13] MEDS: FUROSEMIDE 20 MG/2 ML VIAL IV SCH (10:00)
[2021-08-13] MEDS: PRENATAL VITAMIN TAB PO SCH (10:00)
[2021-08-13] MEDS: FAMOTIDINE (10MG/ML) 2ML VL IV SCH (10:00)
[2021-08-13] MEDS: MULTIPLE VITAMIN TAB PO SCH (10:01)
[2021-08-13] MEDS: ZINC SULFATE 220mg CAP or TAB PO SCH (10:01)
[2021-08-13] MEDS: FOLIC ACID 1 MG TAB PO SCH (10:01)
[2021-08-13] MEDS: THIAMINE HCL 100 MG TAB PO SCH (10:01)
[2021-08-13] MEDS: ASCORBIC ACID 500 MG TAB PO SCH (10:02)
[2021-08-13 13:00] VITALS: BP 108/62
[2021-08-13 16:01] VITALS: BP 108/62
[2021-08-13 16:18] LABS: Protein, Urine 11.7 mg/dL (0.0-11.9)
[2021-08-13 17:00] VITALS: BP 105/55
== END 2021-08-13 18:28 | disposition home or self-care (01) | DRG 242 ==
LOC: ER 16:50 → EDBD 16:50 → ER 19:44 → ICU WEST 21:22 → TELE-CENTR 08-12 21:10
PROVIDERS: ADMIT Nurse Practitioner Family; ATTEND Internal Medicine Geriatric Medicine
PROC: B211YZZ Fluoroscopy of Multiple Coronary Arteries using Other Contrast (ICD-10-PCS; principal; 2021-08-10)
PROC: B41CYZZ Fluoroscopy of Pelvic Arteries using Other Contrast (ICD-10-PCS; 2021-08-10)
PROC: 5A1223Z Performance of Cardiac Pacing, Continuous (ICD-10-PCS; 2021-08-10)
PROC: 0JH606Z Insertion of Pacemaker, Dual Chamber into Chest Subcutaneous Tissue and Fascia, Open Approach (ICD-10-PCS; 2021-08-12)
PROC: 02H63JZ Insertion of Pacemaker Lead into Right Atrium, Percutaneous Approach (ICD-10-PCS; 2021-08-12)
PROC: 02HK3JZ Insertion of Pacemaker Lead into Right Ventricle, Percutaneous Approach (ICD-10-PCS; 2021-08-12)
PROC: 5A2204Z Restoration of Cardiac Rhythm, Single (ICD-10-PCS; 2021-08-12)
DX: I44.2 Atrioventricular block, complete (principal); I21.4 Non-ST elevation (NSTEMI) myocardial infarction; E44.0 Moderate protein-calorie malnutrition; N18.4 Chronic kidney disease, stage 4 (severe); N17.9 Acute kidney failure, unspecified; E87.2 Acidosis; D68.9 Coagulation defect, unspecified; J98.11 Atelectasis; I13.0 Hypertensive heart and chronic kidney disease with heart failure and stage 1 through stage 4 chronic kidney disease, or unspecified chronic kidney disease; I47.2 Ventricular tachycardia; I48.91 Unspecified atrial fibrillation; J44.9 Chronic obstructive pulmonary disease, unspecified; I35.1 Nonrheumatic aortic (valve) insufficiency; G89.29 Other chronic pain; M54.9 Dorsalgia, unspecified; R00.1 Bradycardia, unspecified; Z20.822 Contact with and (suspected) exposure to COVID-19; I50.9 Heart failure, unspecified; D63.1 Anemia in chronic kidney disease; Z98.61 Coronary angioplasty status; Z90.49 Acquired absence of other specified parts of digestive tract; F10.20 Alcohol dependence, uncomplicated
CPT/HCPCS: 33208; 36415; 71045; 75710; 76775; 80048; 80053; 80061; 81001; 82306; 82570; 83735; 83880; 83970; 84100; 84156; 84300; 84443; 84484; 85025; 85610; 85730; 87426; 93005; 93306; 93454; 96361; 96374; 96375; 99152; 99153; 99291; A4565; C1785; G0378; J2250; J2405; J3430; J3490; Q9967

== ENCOUNTER 2021-10-11 10:46 | Inpatient (IN) | payer OTHER ==
[~2021-10-11] VITALS: Ht 165.1 cm; Wt 65.8 kg
[2021-10-11 12:20] LABS: Basophils # (auto) 0 10 ^3/uL (0-0.2); Basophils % (auto) 0.6 % (0.0-2.0); Eosinophils # (auto) 0.1 10 ^3/uL (0-0.8); Eosinophils % (auto) 0.8 % (0.0-7.0); Hematocrit 37.3 % (36.0-46.0); Hemoglobin 12.2 g/dL (12.2-16.2); Lymphocytes # (auto) 0.6 10 ^3/uL (0.4-5.4); Lymphocytes % (auto) 7.9 % (10.0-50.0); Mean Corpuscular Hemoglobin 30.1 pg (28.0-32.0); Mean Corpuscular Hgb Conc. 32.8 g/dL (32.0-36.0); Mean Corpuscular Volume 91.6 fL (80.0-100.0); Monocytes # (auto) 0.4 10 ^3/uL (0-1.3); Monocytes % (auto) 5.7 % (0.0-12.0); Neutrophils # (auto) 6.6 10 ^3/uL (1.6-8.6); Red Blood Cells 4.07 10^6/uL (4.0-5.20); Red Cell Distribution Width 16.1 % (11.8-14.3); White Blood Cell 7.7 10^3/uL (4.4-10.8)
[2021-10-11 12:40] LABS: Albumin 3.4 g/dL (3.4-5.0); Calcium 9.5 mg/dL (8.5-10.1); Potassium 4.3 mmol/L (3.5-5.1)
[2021-10-11 12:43] LABS: Bilirubin, Total 0.8 mg/dL (0.2-1.0); Total Protein 7.1 g/dL (6.4-8.2)
[2021-10-11] MEDS ORDERED: ASPirin 325 MG TAB PO ONE (13:00)
[2021-10-11] MEDS ORDERED: CLOPIDOGREL BISULFATE 75 MG TAB PO ONE (13:00)
[2021-10-11 17:40] LABS: Urine Bacteria NONE SEEN /hpf (None Seen); Urine Blood Negative /uL (Negative); Urine Mucus FEW (None Seen); Urine Specific Gravity 1.025 (1.001-1.035); Urine WBC 72 /hpf (0 - 5)
[2021-10-11] MEDS ORDERED: AMIODARONE HCL 150 MG in D5W 5% 100 ML IV ONE (18:00)
[2021-10-11] MEDS ORDERED: MORPHINE SULFATE INJECTION 2 MG/ML SYRG IV PRN (18:30)
[2021-10-11] MEDS ORDERED: NITROGLYCERIN 0.4 MG SL TAB SL PRN (18:30)
[2021-10-11] MEDS ORDERED: AMIODARONE 450mg/250ml AE 250 ML IV SCH (21:45)
[2021-10-11] MEDS ORDERED: ENOXAPARIN SOD 30 MG/0.3 ML SYRINGE SC SCH (22:00)
[2021-10-11] MEDS ORDERED: HEPARIN SODIUM (PORCINE) 5000 UNITS/ML 1ML VIAL IV SCH (22:00)
[2021-10-11] MEDS: FUROSEMIDE 40 MG/4 ML VIAL IV SCH (22:12)
[2021-10-11] MEDS: HEPARIN SODIUM (PORCINE) 5000 UNITS/ML 1ML VIAL SC SCH (23:22)
[2021-10-12] VITALS: BP 123/84
[2021-10-12 01:35] LABS: INR 1.16 (0.9-1.15); Partial Thromboplastin Time 26.3 sec (23.6-33.0)
[2021-10-12 05:00] VITALS: BP 125/83
[2021-10-12 05:34] LABS: Basophils # (auto) 0.1 10 ^3/uL (0-0.2); Basophils % (auto) 0.8 % (0.0-2.0); Eosinophils # (auto) 0.1 10 ^3/uL (0-0.8); Eosinophils % (auto) 2.1 % (0.0-7.0); Hematocrit 36.4 % (36.0-46.0); Hemoglobin 12.5 g/dL (12.2-16.2); Lymphocytes # (auto) 0.8 10 ^3/uL (0.4-5.4); Lymphocytes % (auto) 13.1 % (10.0-50.0); Mean Corpuscular Hgb Conc. 34.2 g/dL (32.0-36.0); Mean Corpuscular Volume 90.6 fL (80.0-100.0); Monocytes # (auto) 0.5 10 ^3/uL (0-1.3); Monocytes % (auto) 7.9 % (0.0-12.0); Neutrophils # (auto) 4.9 10 ^3/uL (1.6-8.6); Neutrophils % (auto) 76.1 % (37.0-80.0); Nucleated Red Blood Cells % 0.1 %; Red Blood Cells 4.02 10^6/uL (4.0-5.20); Red Cell Distribution Width 16.2 % (11.8-14.3); White Blood Cell 6.4 10^3/uL (4.4-10.8)
[2021-10-12 05:39] LABS: Albumin 3.3 g/dL (3.4-5.0); Calcium 9.5 mg/dL (8.5-10.1); Potassium 4.2 mmol/L (3.5-5.1)
[2021-10-12 05:44] LABS: BUN/Creatinine Ratio 26.7; Bilirubin, Total 1.1 mg/dL (0.2-1.0); Total Protein 6.5 g/dL (6.4-8.2)
[2021-10-12] MEDS: AMIODARONE 450mg/250ml AE 250 ML IV SCH ×3 (06:03→22:24)
[2021-10-12] MEDS: FUROSEMIDE 40 MG/4 ML VIAL IV SCH ×2 (06:24→17:18)
[2021-10-12] MEDS: HEPARIN SODIUM (PORCINE) 5000 UNITS/ML 1ML VIAL SC SCH ×3 (06:24→22:13)
[2021-10-12] MEDS ORDERED: HEPARIN SODIUM (PORCINE) 5000 UNITS/ML 1ML VIAL IV ONE (07:30)
[2021-10-12] MEDS ORDERED: HEPARIN DRIP/D5W 100UNITS/ML 250 ML IV SCH (07:30)
[2021-10-12 09:00] VITALS: BP 134/99
[2021-10-12] MEDS: METOPROLOL TARTRATE 25 MG TAB PO SCH ×2 (09:31→22:13)
[2021-10-12] MEDS ORDERED: CLOPIDOGREL BISULFATE 75 MG TAB PO SCH ×2 (10:00)
[2021-10-12 13:10] VITALS: BP 124/91
[2021-10-12 17:00] VITALS: BP 133/86
[2021-10-12 22:00] VITALS: BP 133/94
[2021-10-13] MEDS: METOPROLOL TARTRATE 25 MG TAB PO SCH ×3 (03:54→22:47)
[2021-10-13 05:00] VITALS: BP 137/96
[2021-10-13] MEDS: FUROSEMIDE 40 MG/4 ML VIAL IV SCH ×2 (05:44→17:26)
[2021-10-13 09:00] VITALS: BP 117/91
[2021-10-13] MEDS: APIXABAN 5 MG TAB PO SCH ×2 (09:30→22:48)
[2021-10-13] MEDS: AMIODARONE HCL 200 MG TAB PO SCH ×2 (09:30→22:49)
[2021-10-13 12:57] VITALS: BP 115/67
[2021-10-13 17:00] VITALS: BP 114/75
[2021-10-13] MEDS: ACETAMINOPHEN 325 MG TAB PO PRN (21:18)
[2021-10-13 22:00] VITALS: BP 136/98
[2021-10-13] MEDS ORDERED: TEMAZEPAM 15 MG CAP PO ONE (23:45)
[2021-10-14] MEDS: FUROSEMIDE 40 MG/4 ML VIAL IV SCH ×2 (05:32→17:23)
[2021-10-14 05:58] VITALS: BP 151/89
[2021-10-14 08:26] VITALS: BP 130/61
[2021-10-14] MEDS: AMIODARONE HCL 200 MG TAB PO SCH ×2 (09:56→21:23)
[2021-10-14] MEDS: APIXABAN 5 MG TAB PO SCH ×2 (09:56→21:22)
[2021-10-14] MEDS: METOPROLOL TARTRATE 25 MG TAB PO SCH ×2 (09:57→21:23)
[2021-10-14 13:00] VITALS: BP 115/75
[2021-10-14 17:20] VITALS: BP 128/75
[2021-10-14 17:22] VITALS: BP 136/69
[2021-10-14] MEDS: ACETAMINOPHEN 325 MG TAB PO PRN (20:54)
[2021-10-14 21:30] VITALS: BP 132/75
[2021-10-15] MEDS: FUROSEMIDE 40 MG/4 ML VIAL IV SCH ×2 (05:09→16:53)
[2021-10-15 05:10] VITALS: BP 143/74
[2021-10-15] MEDS: AMIODARONE HCL 200 MG TAB PO SCH ×2 (09:38→22:28)
[2021-10-15] MEDS: APIXABAN 5 MG TAB PO SCH ×2 (09:38→22:28)
[2021-10-15] MEDS: METOPROLOL TARTRATE 25 MG TAB PO SCH ×2 (09:38→22:29)
[2021-10-15 09:41] VITALS: BP 131/59
[2021-10-15] MEDS: ACETAMINOPHEN 325 MG TAB PO PRN ×2 (10:03→16:53)
[2021-10-15 14:51] VITALS: BP 112/66
[2021-10-15 16:45] VITALS: BP 111/56
[2021-10-15 22:00] VITALS: BP 107/59
[2021-10-16 05:36] VITALS: BP 122/72
[2021-10-16] MEDS: FUROSEMIDE 40 MG/4 ML VIAL IV SCH (06:10)
[2021-10-16 07:27] LABS: Basophils # (auto) 0.1 10 ^3/uL (0-0.2); Basophils % (auto) 0.8 % (0.0-2.0); Eosinophils # (auto) 0.2 10 ^3/uL (0-0.8); Eosinophils % (auto) 3.7 % (0.0-7.0); Hematocrit 41.1 % (36.0-46.0); Hemoglobin 13.9 g/dL (12.2-16.2); Lymphocytes # (auto) 0.9 10 ^3/uL (0.4-5.4); Lymphocytes % (auto) 13.7 % (10.0-50.0); Mean Corpuscular Hemoglobin 30.6 pg (28.0-32.0); Mean Corpuscular Hgb Conc. 33.9 g/dL (32.0-36.0); Mean Corpuscular Volume 90.3 fL (80.0-100.0); Monocytes # (auto) 0.6 10 ^3/uL (0-1.3); Monocytes % (auto) 8.8 % (0.0-12.0); Neutrophils # (auto) 4.8 10 ^3/uL (1.6-8.6); Nucleated Red Blood Cells % 0.1 %; Red Blood Cells 4.55 10^6/uL (4.0-5.20); Red Cell Distribution Width 16.7 % (11.8-14.3); White Blood Cell 6.6 10^3/uL (4.4-10.8)
[2021-10-16 07:45] LABS: BUN/Creatinine Ratio 26.6; Calcium 9.3 mg/dL (8.5-10.1); Potassium 3.7 mmol/L (3.5-5.1)
[2021-10-16] MEDS ORDERED: APIX5TAB PO (09:40)
[2021-10-16] MEDS ORDERED: FURO1TAB31 PO (09:42)
[2021-10-16] MEDS ORDERED: AMIO200T33 PO (09:42)
[2021-10-16] MEDS: APIXABAN 5 MG TAB PO SCH (09:57)
[2021-10-16] MEDS: AMIODARONE HCL 200 MG TAB PO SCH (09:57)
[2021-10-16] MEDS: METOPROLOL TARTRATE 25 MG TAB PO SCH (09:57)
[2021-10-16 10:34] VITALS: BP 108/61
[2021-10-16 13:00] VITALS: BP 112/61
[2021-10-16 17:00] VITALS: BP 118/57
[2021-10-16 17:41] VITALS: BP 118/57
== END 2021-10-16 18:33 | disposition home or self-care (01) | DRG 291 ==
LOC: ER 10:46 → TELE 18:29 → TELE-CENTR 23:30
PROVIDERS: ADMIT Internal Medicine; ATTEND Internal Medicine Geriatric Medicine
PROC: 4B02XSZ Measurement of Cardiac Pacemaker, External Approach (ICD-10-PCS; principal; 2021-10-12)
DX: I13.0 Hypertensive heart and chronic kidney disease with heart failure and stage 1 through stage 4 chronic kidney disease, or unspecified chronic kidney disease (principal); I50.23 Acute on chronic systolic (congestive) heart failure; N17.9 Acute kidney failure, unspecified; I82.413 Acute embolism and thrombosis of femoral vein, bilateral; I48.91 Unspecified atrial fibrillation; I49.5 Sick sinus syndrome; J44.9 Chronic obstructive pulmonary disease, unspecified; R77.8 Other specified abnormalities of plasma proteins; Z20.822 Contact with and (suspected) exposure to COVID-19; N18.9 Chronic kidney disease, unspecified; R74.01 Elevation of levels of liver transaminase levels; Z95.0 Presence of cardiac pacemaker; Z79.899 Other long term (current) drug therapy
CPT/HCPCS: 36415; 71046; 80048; 80053; 81001; 83880; 84484; 85025; 85610; 85730; 87086; 87088; 87186; 87426; 93005; 93306; 93970; 96365; 96366; 97110; 97116; 97163; 97530; 99291; G0378

== ENCOUNTER 2022-10-31 10:58 | Inpatient (IN) | payer OTHER ==
[~2022-10-31] VITALS: Ht 165.1 cm; Wt 72.5 kg
[~2022-10-31 10:58] MED LIST changes: +AMIO200T33 PO; +APIX5TAB PO; +FURO1TAB31 PO
[2022-10-31 12:19] LABS: Basophils # (auto) 0 10 ^3/uL (0-0.2); Basophils % (auto) 0.5 % (0.0-2.0); Eosinophils # (auto) 0.1 10 ^3/uL (0-0.8); Hematocrit 40.9 % (36.0-46.0); Hemoglobin 13.2 g/dL (12.2-16.2); Lymphocytes # (auto) 0.9 10 ^3/uL (0.4-5.4); Lymphocytes % (auto) 14.2 % (10.0-50.0); Mean Corpuscular Hemoglobin 28.7 pg (28.0-32.0); Mean Corpuscular Hgb Conc. 32.4 g/dL (32.0-36.0); Mean Corpuscular Volume 88.6 fL (80.0-100.0); Monocytes # (auto) 0.5 10 ^3/uL (0-1.3); Neutrophils # (auto) 4.7 10 ^3/uL (1.6-8.6); Neutrophils % (auto) 76.3 % (37.0-80.0); Nucleated Red Blood Cells % 0.1 %; Red Blood Cells 4.61 10^6/uL (4.0-5.20); Red Cell Distribution Width 17.6 % (11.8-14.3); White Blood Cell 6.2 10^3/uL (4.4-10.8)
[2022-10-31 12:36] LABS: Albumin 3.5 g/dL (3.4-5.0); Calcium 9.3 mg/dL (8.5-10.1); Magnesium 2.2 mg/dL (1.6-2.6); Potassium 3.8 mmol/L (3.5-5.1)
[2022-10-31 12:58] LABS: BUN/Creatinine Ratio 27.8; Bilirubin, Total 1.6 mg/dL (0.2-1.0); Total Protein 6.5 g/dL (6.4-8.2)
[2022-10-31] MEDS ORDERED: ONDANSETRON HCL 4 MG/2 ML VIAL IV PRN (16:15)
[2022-10-31] MEDS ORDERED: MORPHINE SULFATE INJ 2 MG/ml SYRG IV PRN (16:15)
[2022-10-31] MEDS ORDERED: DOCUSATE SOD 100 MG CAP PO PRN (16:15)
[2022-10-31] MEDS ORDERED: ALBUTEROL SULF 2.5 MG/0.5ML(0.5%) NEB SOLN NEB PRN (16:45)
[2022-10-31] MEDS ORDERED: IPRATROPIUM BROM 0.5 MG/2.5ML INH SOL NEB PRN (16:45)
[2022-10-31] MEDS ORDERED: DONE5TAB80 PO (17:02)
[2022-10-31] MEDS ORDERED: ACET325T82 PO (17:02)
[2022-10-31] MEDS ORDERED: ROPI0.2533 PO (17:02)
[2022-10-31] MEDS ORDERED: VENL37.572 PO (17:02)
[2022-10-31] MEDS ORDERED: MAGN400T40 PO (17:02)
[2022-10-31] MEDS ORDERED: POTA1TAB61 PO (17:02)
[2022-10-31 17:16] VITALS: BP 142/84
[2022-10-31] MEDS: cefTRIAXone 1GM/50ML D5W 50 ML IV SCH (17:34)
[2022-10-31] MEDS: SODIUM CHLORIDE 0.9% 1,000 ML IV SCH (17:35)
[2022-10-31 18:24] LABS: INR 1.24 (0.9-1.15)
[2022-10-31 18:31] LABS: Urine Bacteria MANY /hpf (None Seen); Urine Blood Negative /uL (Negative); Urine Mucus MODERATE (None Seen); Urine Specific Gravity 1.025 (1.001-1.035); Urine WBC 36 /hpf (0 - 5)
[2022-10-31 18:41] LABS: Creatinine, Urine 170 mg/dL (30.0-125.0); Sodium Urine 61 mmol/L (40-220)
[2022-10-31] MEDS ORDERED: METOPROLOL SUCCINATE XL 50 MG TAB PO ONE (19:15)
[2022-10-31] MEDS ORDERED: AMIODARONE HCL 200 MG TAB PO ONE (19:15)
[2022-10-31] MEDS: AZITHROMYCIN 500MG/ 250ML 250 ML IV SCH (19:57)
[2022-10-31] MEDS: ACETAMINOPHEN 325 MG TAB PO PRN (21:42)
[2022-10-31] MEDS: ATORVASTATIN 20 MG TAB PO SCH (21:47)
[2022-10-31] MEDS: APIXABAN 5 MG TAB PO SCH (21:47)
[2022-11-01] MEDS: SODIUM CHLORIDE 0.9% 1,000 ML IV SCH ×3 (02:24→21:53)
[2022-11-01 06:26] LABS: Basophils # (auto) 0 10 ^3/uL (0-0.2); Basophils % (auto) 0.6 % (0.0-2.0); Eosinophils # (auto) 0 10 ^3/uL (0-0.8); Eosinophils % (auto) 0.9 % (0.0-7.0); Hematocrit 37.8 % (36.0-46.0); Hemoglobin 12.2 g/dL (12.2-16.2); Lymphocytes # (auto) 0.8 10 ^3/uL (0.4-5.4); Lymphocytes % (auto) 14.6 % (10.0-50.0); Mean Corpuscular Hemoglobin 29.2 pg (28.0-32.0); Mean Corpuscular Hgb Conc. 32.4 g/dL (32.0-36.0); Monocytes # (auto) 0.4 10 ^3/uL (0-1.3); Neutrophils # (auto) 3.9 10 ^3/uL (1.6-8.6); Neutrophils % (auto) 75.9 % (37.0-80.0); Nucleated Red Blood Cells % 0.2 %; Red Blood Cells 4.19 10^6/uL (4.0-5.20); Red Cell Distribution Width 17.6 % (11.8-14.3); White Blood Cell 5.2 10^3/uL (4.4-10.8)
[2022-11-01 06:55] LABS: Potassium 4.1 mmol/L (3.5-5.1)
[2022-11-01 07:07] LABS: Albumin 2.9 g/dL (3.4-5.0); BUN/Creatinine Ratio 26.3; Bilirubin, Total 1.1 mg/dL (0.2-1.0); Calcium 8.3 mg/dL (8.5-10.1); Total Protein 5.5 g/dL (6.4-8.2)
[2022-11-01] MEDS: cefTRIAXone 1GM/50ML D5W 50 ML IV SCH (09:07)
[2022-11-01] MEDS: amLODIPine BESYLATE 5 MG TAB PO SCH (10:00)
[2022-11-01] MEDS: METOPROLOL SUCCINATE XL 50 MG TAB PO SCH (10:05)
[2022-11-01] MEDS: APIXABAN 5 MG TAB PO SCH ×2 (10:26→21:51)
[2022-11-01] MEDS: FUROSEMIDE 20 MG/2 ML VIAL IV SCH (10:26)
[2022-11-01] MEDS: ASPirin-EC 81 mg tab PO SCH (10:27)
[2022-11-01] MEDS: FOLIC ACID 1 MG TAB PO SCH (10:29)
[2022-11-01] MEDS: AZITHROMYCIN 500MG/ 250ML 250 ML IV SCH (10:29)
[2022-11-01] MEDS: AMIODARONE HCL 200 MG TAB PO SCH (10:29)
[2022-11-01] MEDS: ATORVASTATIN 20 MG TAB PO SCH (21:51)
[2022-11-01 22:00] VITALS: BP 92/65
[2022-11-02 04:58] LABS: Basophils # (auto) 0.1 10 ^3/uL (0-0.2); Basophils % (auto) 0.9 % (0.0-2.0); Eosinophils # (auto) 0.2 10 ^3/uL (0-0.8); Eosinophils % (auto) 2.9 % (0.0-7.0); Hemoglobin 12.9 g/dL (12.2-16.2); Lymphocytes # (auto) 1.4 10 ^3/uL (0.4-5.4); Lymphocytes % (auto) 21.3 % (10.0-50.0); Mean Corpuscular Hemoglobin 28.3 pg (28.0-32.0); Mean Corpuscular Hgb Conc. 31.3 g/dL (32.0-36.0); Mean Corpuscular Volume 90.4 fL (80.0-100.0); Monocytes # (auto) 0.7 10 ^3/uL (0-1.3); Monocytes % (auto) 11.1 % (0.0-12.0); Neutrophils # (auto) 4.1 10 ^3/uL (1.6-8.6); Neutrophils % (auto) 63.8 % (37.0-80.0); Nucleated Red Blood Cells % 0.1 %; Red Blood Cells 4.54 10^6/uL (4.0-5.20); Red Cell Distribution Width 18.9 % (11.8-14.3); White Blood Cell 6.5 10^3/uL (4.4-10.8)
[2022-11-02 05:00] VITALS: BP 106/68
[2022-11-02 05:10] LABS: BUN/Creatinine Ratio 24.2; Calcium 8.5 mg/dL (8.5-10.1); Potassium 4.3 mmol/L (3.5-5.1)
[2022-11-02 08:00] VITALS: BP 128/90
[2022-11-02] MEDS: SODIUM CHLORIDE 0.9% 1,000 ML IV SCH ×2 (08:46→17:59)
[2022-11-02 09:00] VITALS: BP 128/90
[2022-11-02] MEDS: cefTRIAXone 1GM/50ML D5W 50 ML IV SCH (09:09)
[2022-11-02] MEDS: AMIODARONE HCL 200 MG TAB PO SCH (09:10)
[2022-11-02] MEDS: ASPirin-EC 81 mg tab PO SCH (09:10)
[2022-11-02] MEDS: APIXABAN 5 MG TAB PO SCH ×2 (09:10→21:36)
[2022-11-02] MEDS: FOLIC ACID 1 MG TAB PO SCH (09:10)
[2022-11-02] MEDS: FUROSEMIDE 20 MG/2 ML VIAL IV SCH (09:10)
[2022-11-02] MEDS: amLODIPine BESYLATE 5 MG TAB PO SCH (09:11)
[2022-11-02] MEDS: METOPROLOL SUCCINATE XL 50 MG TAB PO SCH (09:11)
[2022-11-02 13:00] VITALS: BP 106/71
[2022-11-02] MEDS ORDERED: LACTULOSE 20Gm/30ML SOLN PO ONE (13:00)
[2022-11-02 17:00] VITALS: BP 109/78
[2022-11-02] MEDS: ATORVASTATIN 20 MG TAB PO SCH (21:36)
[2022-11-02] MEDS: ACETAMINOPHEN 325 MG TAB PO PRN (21:44)
[2022-11-02] MEDS: DOCUSATE SOD 100 MG CAP PO SCH (21:46)
[2022-11-02 22:00] VITALS: BP 112/79
[2022-11-02] MEDS ORDERED: traZODone HCL 50 MG TAB PO SCH (22:00)
[2022-11-03] MEDS: SODIUM CHLORIDE 0.9% 1,000 ML IV SCH (04:24)
[2022-11-03 05:00] VITALS: BP 103/63
[2022-11-03 09:00] VITALS: BP 111/75
[2022-11-03] MEDS ORDERED: DOCU-94 PO (09:23)
[2022-11-03] MEDS ORDERED: CIPR250T3 PO (09:23)
[2022-11-03] MEDS: DOCUSATE SOD 100 MG CAP PO SCH (09:47)
[2022-11-03] MEDS: FOLIC ACID 1 MG TAB PO SCH (09:47)
[2022-11-03] MEDS: cefTRIAXone 1GM/50ML D5W 50 ML IV SCH (09:47)
[2022-11-03] MEDS: APIXABAN 5 MG TAB PO SCH (09:47)
[2022-11-03] MEDS: AMIODARONE HCL 200 MG TAB PO SCH (09:47)
[2022-11-03] MEDS: ASPirin-EC 81 mg tab PO SCH (09:47)
[2022-11-03] MEDS: amLODIPine BESYLATE 5 MG TAB PO SCH (09:48)
[2022-11-03] MEDS: FUROSEMIDE 20 MG/2 ML VIAL IV SCH (09:48)
[2022-11-03] MEDS: METOPROLOL SUCCINATE XL 50 MG TAB PO SCH (09:48)
[2022-11-03] MEDS ORDERED: LACTULOSE 20Gm/30ML SOLN PO SCH (10:00)
[2022-11-03 12:37] VITALS: BP 139/90
[2022-11-03] MEDS ORDERED: FUROSEMIDE 20 MG/2 ML VIAL IV SCH (18:00)
== END 2022-11-03 15:30 | disposition hospice, home (50) | DRG 193 ==
LOC: ER 11:04 → TELE 16:35 → TELE-CENTR 11-01 20:26
PROVIDERS: ADMIT Nurse Practitioner Family; ATTEND Internal Medicine Geriatric Medicine
DX: J15.9 Unspecified bacterial pneumonia (principal); I21.A1 Myocardial infarction type 2; E44.0 Moderate protein-calorie malnutrition; J44.0 Chronic obstructive pulmonary disease with (acute) lower respiratory infection; J44.1 Chronic obstructive pulmonary disease with (acute) exacerbation; N17.9 Acute kidney failure, unspecified; N39.0 Urinary tract infection, site not specified; I13.0 Hypertensive heart and chronic kidney disease with heart failure and stage 1 through stage 4 chronic kidney disease, or unspecified chronic kidney disease; I31.39 Other pericardial effusion (noninflammatory); I42.9 Cardiomyopathy, unspecified; Z20.822 Contact with and (suspected) exposure to COVID-19; E86.0 Dehydration; F32.A Depression, unspecified; E78.5 Hyperlipidemia, unspecified; G47.00 Insomnia, unspecified; Z68.26 Body mass index [BMI] 26.0-26.9, adult; I48.0 Paroxysmal atrial fibrillation; K59.00 Constipation, unspecified; N18.30 Chronic kidney disease, stage 3 unspecified; Z79.01 Long term (current) use of anticoagulants; Z82.49 Family history of ischemic heart disease and other diseases of the circulatory system; Z86.73 Personal history of transient ischemic attack (TIA), and cerebral infarction without residual deficits; Z90.49 Acquired absence of other specified parts of digestive tract; Z95.810 Presence of automatic (implantable) cardiac defibrillator; I50.9 Heart failure, unspecified
CPT/HCPCS: 36415; 71046; 74176; 80048; 80053; 80320; 81001; 82570; 83735; 83880; 84300; 84484; 85025; 85379; 85610; 87081; 87086; 87426; 87804; 93005; 93306; 96365; 96367; 96375; G0378; J0696; J2405

== ENCOUNTER 2022-11-18 10:51 | Inpatient (IN) | payer OTHER ==
[~2022-11-18] VITALS: Ht 165.1 cm; Wt 60.2 kg
[~2022-11-18 10:51] MED LIST changes: +ACET325T82 PO; +CIPR250T3 PO; +DOCU-94 PO; +DONE5TAB80 PO; +MAGN400T40 PO; +POTA1TAB61 PO; +ROPI0.2533 PO; +VENL37.572 PO
[2022-11-18] MEDS ORDERED: dilTIAZem 25 MG/5 ML VIAL IV ONE ×2 (12:00→19:00)
[2022-11-18 12:07] LABS: Basophils # (auto) 0.1 10 ^3/uL (0-0.2); Eosinophils # (auto) 0.1 10 ^3/uL (0-0.8); Eosinophils % (auto) 1.3 % (0.0-7.0); Hematocrit 39.4 % (36.0-46.0); Hemoglobin 12.7 g/dL (12.2-16.2); Lymphocytes # (auto) 0.7 10 ^3/uL (0.4-5.4); Lymphocytes % (auto) 14.9 % (10.0-50.0); Mean Corpuscular Hemoglobin 28.6 pg (28.0-32.0); Mean Corpuscular Hgb Conc. 32.3 g/dL (32.0-36.0); Mean Corpuscular Volume 88.5 fL (80.0-100.0); Monocytes # (auto) 0.3 10 ^3/uL (0-1.3); Monocytes % (auto) 6.1 % (0.0-12.0); Neutrophils # (auto) 3.8 10 ^3/uL (1.6-8.6); Neutrophils % (auto) 76.7 % (37.0-80.0); Nucleated Red Blood Cells % 0.1 %; Red Blood Cells 4.46 10^6/uL (4.0-5.20); Red Cell Distribution Width 18.5 % (11.8-14.3)
[2022-11-18 12:23] LABS: INR 1.23 (0.9-1.15); Partial Thromboplastin Time 25.9 sec (24.6-33.4)
[2022-11-18 12:24] LABS: Albumin 3.4 g/dL (3.4-5.0); Calcium 10.2 mg/dL (8.5-10.1); Magnesium 2.3 mg/dL (1.6-2.6); Potassium 4.3 mmol/L (3.5-5.1)
[2022-11-18 12:27] LABS: Lactic Acid w/Reflex 2.5 mmol/L (0.4-2.0)
[2022-11-18 12:33] LABS: Bilirubin, Total 1.4 mg/dL (0.2-1.0); Total Protein 6.8 g/dL (6.4-8.2)
[2022-11-18] MEDS ORDERED: PIPERACILLIN-TAZOB 3.375GM 100 ML IV ONE (13:00)
[2022-11-18 13:15] LABS: Urine Bacteria NONE SEEN /hpf (None Seen); Urine Blood Negative /uL (Negative); Urine Specific Gravity 1.025 (1.001-1.035); Urine WBC 1 /hpf (0 - 5)
[2022-11-18] MEDS ORDERED: CEFEPIME 1GM/ 50ML 50 ML IV ONE (13:45)
[2022-11-18] MEDS ORDERED: NITROGLYCERIN 0.4 MG SL TAB SL PRN (13:45)
[2022-11-18] MEDS ORDERED: MORPHINE SULFATE INJ 2 MG/ml SYRG IV PRN (13:45)
[2022-11-18] MEDS ORDERED: ACETAMINOPHEN 325 MG TAB PO PRN (13:45)
[2022-11-18] MEDS ORDERED: FUROSEMIDE 20 MG/2 ML VIAL IV ONE (13:45)
[2022-11-18] MEDS ORDERED: VANCOMYCIN PER PHARMACY 0 MG IV SCH (13:45)
[2022-11-18] MEDS ORDERED: PANTOPRAZOLE 40 MG/10 ML VIAL INJ IV ONE (13:45)
[2022-11-18] MEDS ORDERED: ALBUTEROL MEDNEB 2.5 mg/3ml NEB NEB PRN (13:45)
[2022-11-18] MEDS ORDERED: hydrALAZINE HCL 20 MG/ML VL IV PRN (13:45)
[2022-11-18 13:56] VITALS: BP 158/111
[2022-11-18] MEDS: ALBUTEROL MEDNEB 2.5 mg/3ml NEB NEB SCH ×3 (14:13→22:14)
[2022-11-18] MEDS: IPRATROPIUM BROM 0.5 MG/2.5ML INH SOL NEB SCH ×3 (14:13→22:14)
[2022-11-18] MEDS ORDERED: VANCOMYCIN 1GM/250ML 250 ML IV ONE (14:30)
[2022-11-18] MEDS ORDERED: ONDANSETRON HCL 4 MG/2 ML VIAL IV PRN (15:00)
[2022-11-18 15:27] LABS: Protein, Urine 118.3 mg/dL (0.0-11.9)
[2022-11-18] MEDS ORDERED: PIPERACILLIN-TAZOB 2.25GM 50 ML IV SCH (18:00)
[2022-11-18] MEDS: FUROSEMIDE 40 MG/4 ML VIAL IV SCH (18:34)
[2022-11-18] MEDS ORDERED: AMIODARONE HCL 200 MG TAB PO ONE (19:00)
[2022-11-18] MEDS: CEFEPIME 1GM/ 50ML 50 ML IV SCH (22:00)
[2022-11-18] MEDS: METOPROLOL SUCCINATE 12.5 MG PO SCH (22:00)
[2022-11-18] MEDS: ATORVASTATIN 20 MG TAB PO SCH (22:16)
[2022-11-18] MEDS: APIXABAN 2.5 MG TAB PO SCH (22:16)
[2022-11-19] MEDS: ALBUTEROL MEDNEB 2.5 mg/3ml NEB NEB SCH ×6 (02:32→22:58)
[2022-11-19] MEDS: IPRATROPIUM BROM 0.5 MG/2.5ML INH SOL NEB SCH ×6 (02:32→22:58)
[2022-11-19] MEDS ORDERED: DIGOXIN 0.125 MG TAB PO ONE (06:15)
[2022-11-19] MEDS: FUROSEMIDE 40 MG/4 ML VIAL IV SCH ×2 (06:17→11:34)
[2022-11-19 06:27] LABS: Basophils # (auto) 0 10 ^3/uL (0-0.2); Basophils % (auto) 0.9 % (0.0-2.0); Eosinophils # (auto) 0.2 10 ^3/uL (0-0.8); Eosinophils % (auto) 3.8 % (0.0-7.0); Hematocrit 39.4 % (36.0-46.0); Hemoglobin 12.5 g/dL (12.2-16.2); Lymphocytes # (auto) 0.7 10 ^3/uL (0.4-5.4); Lymphocytes % (auto) 14.4 % (10.0-50.0); Mean Corpuscular Hemoglobin 28.5 pg (28.0-32.0); Mean Corpuscular Hgb Conc. 31.8 g/dL (32.0-36.0); Mean Corpuscular Volume 89.6 fL (80.0-100.0); Monocytes # (auto) 0.4 10 ^3/uL (0-1.3); Monocytes % (auto) 8.9 % (0.0-12.0); Neutrophils # (auto) 3.4 10 ^3/uL (1.6-8.6); Nucleated Red Blood Cells % 0.1 %; Red Blood Cells 4.39 10^6/uL (4.0-5.20); Red Cell Distribution Width 18.5 % (11.8-14.3); White Blood Cell 4.8 10^3/uL (4.4-10.8)
[2022-11-19 06:32] LABS: Potassium 4.3 mmol/L (3.5-5.1)
[2022-11-19 06:37] LABS: Albumin 2.9 g/dL (3.4-5.0); BUN/Creatinine Ratio 20.4; Calcium 9.4 mg/dL (8.5-10.1); Phosphorus 4.1 mg/dL (2.5-4.90); Total Protein 6.4 g/dL (6.4-8.2)
[2022-11-19] MEDS: AMIODARONE HCL 200 MG TAB PO SCH (09:57)
[2022-11-19] MEDS: ASPirin-EC 81 mg tab PO SCH (09:57)
[2022-11-19] MEDS: APIXABAN 2.5 MG TAB PO SCH ×2 (09:57→22:35)
[2022-11-19] MEDS: PANTOPRAZOLE 40 MG/10 ML VIAL INJ IV SCH (09:57)
[2022-11-19] MEDS: VENLAFAXINE HCL 37.5mg XR cap PO SCH (09:58)
[2022-11-19] MEDS: amLODIPine BESYLATE 5 MG TAB PO SCH (09:59)
[2022-11-19] MEDS ORDERED: DONEPEZIL HYDROCHLORIDE 5 MG TAB PO SCH (10:00)
[2022-11-19] MEDS: METOPROLOL SUCCINATE 12.5 MG PO SCH ×2 (10:00→22:00)
[2022-11-19] MEDS ORDERED: FUROSEMIDE 20 MG/2 ML VIAL IV SCH (10:00)
[2022-11-19] MEDS ORDERED: HYDROcodone-ACET 5/325MG TAB PO PRN (12:15)
[2022-11-19] MEDS ORDERED: HYDROcodone-ACET 5/325MG TAB ONE (12:20)
[2022-11-19] MEDS ORDERED: METOPROLOL TARTRATE 25 MG TAB PO ONE (13:00)
[2022-11-19] MEDS ORDERED: VANCOMYCIN 500 MG in D5W 5% 100 ML IV ONE (17:30)
[2022-11-19 21:26] VITALS: BP 114/77
[2022-11-19 22:30] VITALS: BP 114/77
[2022-11-19] MEDS: ATORVASTATIN 20 MG TAB PO SCH (22:36)
[2022-11-19] MEDS: CEFEPIME 1GM/ 50ML 50 ML IV SCH (22:37)
[2022-11-19] MEDS: METOPROLOL TARTRATE 25 MG TAB PO SCH (22:37)
[2022-11-20] MEDS: ALBUTEROL MEDNEB 2.5 mg/3ml NEB NEB SCH ×5 (02:00→18:36)
[2022-11-20] MEDS: IPRATROPIUM BROM 0.5 MG/2.5ML INH SOL NEB SCH ×5 (02:00→18:36)
[2022-11-20 05:00] VITALS: BP 99/66
[2022-11-20 06:42] LABS: Potassium 4.2 mmol/L (3.5-5.1)
[2022-11-20 06:47] LABS: BUN/Creatinine Ratio 21.6; Calcium 8.8 mg/dL (8.5-10.1); Magnesium 2.2 mg/dL (1.6-2.6)
[2022-11-20 07:02] LABS: Basophils # (auto) 0.1 10 ^3/uL (0-0.2); Basophils % (auto) 1.1 % (0.0-2.0); Eosinophils # (auto) 0.2 10 ^3/uL (0-0.8); Eosinophils % (auto) 4.7 % (0.0-7.0); Hematocrit 35.6 % (36.0-46.0); Hemoglobin 11.8 g/dL (12.2-16.2); Lymphocytes # (auto) 0.7 10 ^3/uL (0.4-5.4); Lymphocytes % (auto) 14.4 % (10.0-50.0); Mean Corpuscular Hemoglobin 29.5 pg (28.0-32.0); Mean Corpuscular Hgb Conc. 33.2 g/dL (32.0-36.0); Mean Corpuscular Volume 88.8 fL (80.0-100.0); Monocytes # (auto) 0.4 10 ^3/uL (0-1.3); Monocytes % (auto) 8.9 % (0.0-12.0); Neutrophils # (auto) 3.3 10 ^3/uL (1.6-8.6); Neutrophils % (auto) 70.9 % (37.0-80.0); Nucleated Red Blood Cells % 0.2 %; Red Blood Cells 4.01 10^6/uL (4.0-5.20); Red Cell Distribution Width 18.5 % (11.8-14.3); White Blood Cell 4.6 10^3/uL (4.4-10.8)
[2022-11-20 09:00] VITALS: BP 109/70
[2022-11-20] MEDS: ASPirin-EC 81 mg tab PO SCH (09:58)
[2022-11-20] MEDS: AMIODARONE HCL 200 MG TAB PO SCH (09:58)
[2022-11-20] MEDS: VENLAFAXINE HCL 37.5mg XR cap PO SCH (09:59)
[2022-11-20] MEDS: APIXABAN 2.5 MG TAB PO SCH ×2 (10:00→22:29)
[2022-11-20] MEDS: amLODIPine BESYLATE 5 MG TAB PO SCH (10:00)
[2022-11-20] MEDS: FUROSEMIDE 40 MG/4 ML VIAL IV SCH (10:23)
[2022-11-20] MEDS: METOPROLOL TARTRATE 25 MG TAB PO SCH ×2 (10:23→22:29)
[2022-11-20] MEDS: PANTOPRAZOLE 40 MG/10 ML VIAL INJ IV SCH (10:24)
[2022-11-20] MEDS ORDERED: DIGOXIN 0.25 MG TAB PO ONE (11:30)
[2022-11-20] MEDS ORDERED: AMIODARONE HCL 200 MG TAB PO ONE ×2 (12:00→22:00)
[2022-11-20 13:00] VITALS: BP 109/79
[2022-11-20 17:00] VITALS: BP 114/76
[2022-11-20 22:00] VITALS: BP 94/58
[2022-11-20] MEDS ORDERED: DONEPEZIL HYDROCHLORIDE 5 MG TAB PO SCH (22:00)
[2022-11-20] MEDS: CEFEPIME 1GM/ 50ML 50 ML IV SCH (22:28)
[2022-11-20] MEDS: ATORVASTATIN 20 MG TAB PO SCH (22:29)
[2022-11-21] MEDS: IPRATROPIUM BROM 0.5 MG/2.5ML INH SOL NEB SCH ×5 (00:33→11:43)
[2022-11-21] MEDS: ALBUTEROL MEDNEB 2.5 mg/3ml NEB NEB SCH ×5 (00:33→11:42)
[2022-11-21 04:06] VITALS: BP 132/51
[2022-11-21 05:00] VITALS: BP 105/66
[2022-11-21 05:35] LABS: Calcium 8.4 mg/dL (8.5-10.1); Potassium 4.5 mmol/L (3.5-5.1)
[2022-11-21 05:37] LABS: BUN/Creatinine Ratio 24.6
[2022-11-21 09:00] VITALS: BP 112/67
[2022-11-21] MEDS: PANTOPRAZOLE 40 MG/10 ML VIAL INJ IV SCH (09:13)
[2022-11-21] MEDS: ASPirin-EC 81 mg tab PO SCH (09:16)
[2022-11-21] MEDS: VENLAFAXINE HCL 37.5mg XR cap PO SCH (09:17)
[2022-11-21] MEDS: APIXABAN 2.5 MG TAB PO SCH (09:17)
[2022-11-21] MEDS: AMIODARONE HCL 200 MG TAB PO SCH (09:22)
[2022-11-21] MEDS ORDERED: FUROSEMIDE 40 MG TAB PO SCH (10:00)
[2022-11-21] MEDS ORDERED: AMIODARONE HCL 200 MG TAB PO ONE (11:00)
[2022-11-21] MEDS ORDERED: LEVO250T69 PO (11:03)
[2022-11-21] MEDS: METOPROLOL TARTRATE 25 MG TAB PO SCH (11:38)
[2022-11-21 12:45] VITALS: BP 101/66
[2022-11-21 13:00] VITALS: BP 97/57
[2022-11-21] MEDS ORDERED: DONEPEZIL HYDROCHLORIDE 5 MG TAB PO SCH (22:00)
== END 2022-11-21 15:27 | disposition home health service (06) | DRG 871 ==
LOC: ER 10:51 → TELE 13:37 → TELE-WESTW 11-19 20:57
PROVIDERS: ADMIT Nurse Practitioner Family; ATTEND Internal Medicine Geriatric Medicine
DX: A41.9 Sepsis, unspecified organism (principal); I50.23 Acute on chronic systolic (congestive) heart failure; N17.0 Acute kidney failure with tubular necrosis; I13.0 Hypertensive heart and chronic kidney disease with heart failure and stage 1 through stage 4 chronic kidney disease, or unspecified chronic kidney disease; L03.115 Cellulitis of right lower limb; L03.116 Cellulitis of left lower limb; E44.0 Moderate protein-calorie malnutrition; I42.9 Cardiomyopathy, unspecified; R65.20 Severe sepsis without septic shock; E78.5 Hyperlipidemia, unspecified; N18.32 Chronic kidney disease, stage 3b; Z20.822 Contact with and (suspected) exposure to COVID-19; E83.52 Hypercalcemia; I16.0 Hypertensive urgency; I48.91 Unspecified atrial fibrillation; F03.90 Unspecified dementia, unspecified severity, without behavioral disturbance, psychotic disturbance, mood disturbance, and anxiety; J44.9 Chronic obstructive pulmonary disease, unspecified; Z68.22 Body mass index [BMI] 22.0-22.9, adult; Z82.49 Family history of ischemic heart disease and other diseases of the circulatory system; Z86.73 Personal history of transient ischemic attack (TIA), and cerebral infarction without residual deficits; Z90.49 Acquired absence of other specified parts of digestive tract
CPT/HCPCS: 36415; 71045; 76775; 78582; 80048; 80053; 80202; 81001; 82306; 82570; 83605; 83735; 83880; 83970; 84100; 84156; 84300; 84484; 85025; 85379; 85610; 85730; 87040; 87426; 87804; 93005; 93970; 94640; 96365; 96375; 97110; 97116; 97163; 97530; C9113; G0378; J2405; J2543; J7060

== ENCOUNTER 2023-01-26 09:54 | Emergency (ER) | payer OTHER ==
[~2023-01-26] VITALS: Ht 165.1 cm; Wt 54.5 kg
[~2023-01-26 09:54] MED LIST changes: -AML5T PO; -CIPR250T3 PO; +LEVO250T69 PO
[2023-01-26 10:13] VITALS: BP 116/74
[2023-01-26 11:00] LABS: Basophils # (auto) 0 10 ^3/uL (0-0.2); Basophils % (auto) 0.7 % (0.0-2.0); Eosinophils # (auto) 0.2 10 ^3/uL (0-0.8); Eosinophils % (auto) 3.7 % (0.0-7.0); Hematocrit 37.1 % (36.0-46.0); Hemoglobin 12.4 g/dL (12.2-16.2); Lymphocytes # (auto) 1.1 10 ^3/uL (0.4-5.4); Lymphocytes % (auto) 21.8 % (10.0-50.0); Mean Corpuscular Hemoglobin 29.6 pg (28.0-32.0); Mean Corpuscular Hgb Conc. 33.4 g/dL (32.0-36.0); Mean Corpuscular Volume 88.7 fL (80.0-100.0); Monocytes # (auto) 0.5 10 ^3/uL (0-1.3); Monocytes % (auto) 11.2 % (0.0-12.0); Neutrophils % (auto) 62.6 % (37.0-80.0); Nucleated Red Blood Cells % 0.1 %; Red Blood Cells 4.19 10^6/uL (4.0-5.20); White Blood Cell 4.9 10^3/uL (4.4-10.8)
[2023-01-26 11:03] LABS: Albumin 3.2 g/dL (3.4-5.0); Calcium 9.8 mg/dL (8.5-10.1); Potassium 3.9 mmol/L (3.5-5.1)
[2023-01-26 11:05] LABS: BUN/Creatinine Ratio 29.4 (10.0-20.0)
[2023-01-26 11:08] LABS: Bilirubin, Total 0.6 mg/dL (0.2-1.0); Total Protein 6.9 g/dL (6.4-8.2)
[2023-01-26 11:14] LABS: Red Cell Distribution Width 20.5 % (11.8-14.3)
[2023-01-26 11:32] LABS: Urine Bacteria NONE SEEN /hpf (None Seen); Urine Blood Negative /uL (Negative); Urine Specific Gravity 1.015 (1.001-1.035); Urine WBC 5 /hpf (0 - 5)
[2023-01-26] MEDS ORDERED: ENOXAPARIN SOD 60 MG/0.6 ML SYRINGE SC ONE (13:30)
[2023-01-26] MEDS ORDERED: FUROSEMIDE 40 MG/4 ML VIAL IV ONE (13:30)
== END 2023-01-26 15:18 | disposition left against medical advice (07) ==
LOC: ER 09:54
DX: I21.4 Non-ST elevation (NSTEMI) myocardial infarction (principal); N39.0 Urinary tract infection, site not specified; I11.0 Hypertensive heart disease with heart failure; I50.9 Heart failure, unspecified; R07.89 Other chest pain; I25.2 Old myocardial infarction; I48.91 Unspecified atrial fibrillation; J44.9 Chronic obstructive pulmonary disease, unspecified; Z86.73 Personal history of transient ischemic attack (TIA), and cerebral infarction without residual deficits; Z90.49 Acquired absence of other specified parts of digestive tract; Z90.89 Acquired absence of other organs; Z95.0 Presence of cardiac pacemaker
CPT/HCPCS: 36415; 71045; 80053; 81001; 83880; 84484; 85025; 85379; 93005

== ENCOUNTER 2025-09-11 10:09 | Emergency (ER) | payer OTHER ==
[~2025-09-11] VITALS: Ht 154.9 cm; Wt 65.7 kg
[~2025-09-11 10:09] MED LIST changes: +FOLI-119 PO; -FOLI1TAB6 PO; +LEVO250T58 PO; -LEVO250T69 PO; +POTA-215 PO; -POTA1TAB61 PO
[2025-09-11 10:17] VITALS: BP 132/61; PULSE 83; RESP 17; TEMP 97.7; O2SAT 95
== END 2025-09-11 11:05 | disposition left against medical advice (07) ==
LOC: ER 10:09
DX: R51.9 Headache, unspecified (principal); Z53.21 Procedure and treatment not carried out due to patient leaving prior to being seen by health care provider